=== PATIENT | male | born 1960 | race Caucasian/White ===

== ENCOUNTER 2019-10-12 18:15 | Inpatient (IN) | payer OTHER ==
[~2019-10-12] VITALS: Ht 162.6 cm; Wt 65.5 kg
[2019-10-12] MEDS ORDERED: HYDROCODONE/ACETAMINOPHEN 10/325MG TABLET GT PRN (19:45)
[2019-10-12] MEDS ORDERED: GUAIFENESIN 200MG/10ML SUGAR FREE UDC GT PRN (19:45)
[2019-10-12] MEDS ORDERED: METHOCARBAMOL 500MG TABLET GT PRN ×2 (19:45→20:15)
[2019-10-12] MEDS ORDERED: FLUO40CA8 MT (19:57)
[2019-10-12] MEDS ORDERED: MULT1TAB76 MT (19:57)
[2019-10-12] MEDS ORDERED: CETI-114 MT (19:57)
[2019-10-12 20:00] VITALS: BP 119/76
[2019-10-12] MEDS: ACETAMINOPHEN 650MG/20.3ML UDC GT PRN (20:11)
[2019-10-13 08:00] VITALS: BP 113/76
[2019-10-13 08:04] LABS: HEMATOCRIT. 35.2 % (42.0-52.0); MEAN CORPUSCULAR VOLUME 90.5 fL (80.0-94.0); MEAN PLATELET VOLUME 8.4 fl (7.4-10.4); PLATELET 308 x1000/uL (130-400); RED BLOOD CELL COUNT 3.88 mill/uL (4.7-6.1); RED CELL DISTRIBUTION WIDTH 13.8 % (11.6-14.6)
[2019-10-13 08:13] LABS: CHLORIDE 112 mEq/L (98-107)
[2019-10-13] MEDS: CETIRIZINE 10MG TABLET GT SCH (09:06)
[2019-10-13] MEDS: MULTIVITAMINS,THER W-MINERALS TABLET GT SCH (09:06)
[2019-10-13] MEDS: FLUOXETINE HCL 20MG CAPSULE GT SCH (09:07)
[2019-10-13] MEDS: ACETAMINOPHEN 650MG/20.3ML UDC GT PRN (09:07)
[2019-10-13] MEDS: HEPARIN 5000 UNITS/ML VIAL SUBCUT SCH ×2 (11:15→21:30)
[2019-10-13] MEDS ORDERED: METHOCARBAMOL 500MG TABLET GT PRN (11:30)
[2019-10-13 13:39] LABS: PLATELET ESTIMATE NORMAL
[2019-10-13 20:00] VITALS: BP 109/71
[2019-10-13] MEDS: FAMOTIDINE 20MG TABLET GT SCH (21:30)
[2019-10-14] MEDS: ACETAMINOPHEN 650MG/20.3ML UDC GT PRN ×2 (03:46→14:40)
[2019-10-14 07:28] VITALS: BP 91/61
[2019-10-14] MEDS: FLUOXETINE HCL 20MG CAPSULE GT SCH (09:14)
[2019-10-14] MEDS: MULTIVITAMINS,THER W-MINERALS TABLET GT SCH (09:14)
[2019-10-14] MEDS: CETIRIZINE 10MG TABLET GT SCH (09:14)
[2019-10-14] MEDS: HEPARIN 5000 UNITS/ML VIAL SUBCUT SCH ×2 (09:15→21:15)
[2019-10-14 20:00] VITALS: BP 101/64
[2019-10-14] MEDS: FAMOTIDINE 20MG TABLET GT SCH (21:15)
[2019-10-15 04:43] LABS: HEMOGLOBIN. 13.1 g/dL (14.0-18.0); MEAN CORPUSCULAR HEMOGLOBIN 30.1 pg (28.0-32.0); MEAN CORPUSCULAR VOLUME 89.4 fL (80.0-94.0); PLATELET 307 x1000/uL (130-400); RED BLOOD CELL COUNT 4.36 mill/uL (4.7-6.1); RED CELL DISTRIBUTION WIDTH 13.7 % (11.6-14.6)
[2019-10-15 04:55] LABS: CHLORIDE 109 mEq/L (98-107)
[2019-10-15 05:05] LABS: PHOSPHORUS 3.6 mg/dL (2.5-4.9)
[2019-10-15 05:07] LABS: TOTAL IRON BINDING CAPACITY 226 ug/dL (250-450)
[2019-10-15 05:54] LABS: FOLIC ACID (FOLATE) SERUM 18.6 ng/mL (>5.38)
[2019-10-15 06:25] LABS: PROSTRATE SPECIFIC AG TOTAL 1.7 ng/mL (0.0-4.0)
[2019-10-15 07:09] LABS: PLATELET ESTIMATE NORMAL
[2019-10-15] MEDS: ACETAMINOPHEN 650MG/20.3ML UDC GT PRN ×2 (07:38→21:34)
[2019-10-15 07:53] VITALS: BP 106/60
[2019-10-15] MEDS: CETIRIZINE 10MG TABLET GT SCH (09:24)
[2019-10-15] MEDS: FLUOXETINE HCL 20MG CAPSULE GT SCH (09:24)
[2019-10-15] MEDS: MULTIVITAMINS,THER W-MINERALS TABLET GT SCH (09:24)
[2019-10-15] MEDS: HEPARIN 5000 UNITS/ML VIAL SUBCUT SCH ×2 (09:24→21:35)
[2019-10-15] MEDS ORDERED: AMPICILLIN SOD/SULBACTAM NA 1.5 G in SODIUM CHLORIDE 0.9% 50 ML IV SCH (14:30)
[2019-10-15 20:00] VITALS: BP 108/64
[2019-10-15] MEDS: PIPERACILLIN/TAZOBACTAM 3.375 G in DEXT 5% WATER 100 ML IV SCH ×2 (21:34→22:00)
[2019-10-15] MEDS: LACTULOSE 20G/30ML UDC GT SCH (21:34)
[2019-10-15] MEDS: FAMOTIDINE 20MG TABLET GT SCH (21:34)
[2019-10-16] MEDS: PIPERACILLIN/TAZOBACTAM 3.375 G in DEXT 5% WATER 100 ML IV SCH ×4 (04:05→21:00)
[2019-10-16] MEDS: LACTULOSE 20G/30ML UDC GT SCH (06:00)
[2019-10-16 07:56] VITALS: BP 113/74
[2019-10-16 08:40] LABS: BASOPHILS % 0.2 % (0.0-2.0); EOSINOPHILS % 0.8 % (0.0-5.0); HEMATOCRIT. 38.7 % (42.0-52.0); HEMOGLOBIN. 13.1 g/dL (14.0-18.0); LYMPHOCYTES % 16.1 % (20.0-50.0); MEAN CORPUSCULAR HEMOGLOBIN 30.5 pg (28.0-32.0); MEAN CORPUSCULAR VOLUME 89.9 fL (80.0-94.0); MEAN PLATELET VOLUME 8.4 fl (7.4-10.4); MONOCYTES % 3.4 % (2.0-8.0); NEUTROPHILS % 79.5 % (40.0-76.0); PLATELET 275 x1000/uL (130-400); RED BLOOD CELL COUNT 4.31 mill/uL (4.7-6.1); RED CELL DISTRIBUTION WIDTH 13.4 % (11.6-14.6)
[2019-10-16 08:55] LABS: CHLORIDE 109 mEq/L (98-107)
[2019-10-16] MEDS: MULTIVITAMINS,THER W-MINERALS TABLET GT SCH (10:00)
[2019-10-16] MEDS: CETIRIZINE 10MG TABLET GT SCH (10:00)
[2019-10-16] MEDS: FLUOXETINE HCL 20MG CAPSULE GT SCH (10:00)
[2019-10-16] MEDS: HEPARIN 5000 UNITS/ML VIAL SUBCUT SCH ×2 (10:01→20:40)
[2019-10-16] MEDS: ACETAMINOPHEN 650MG/20.3ML UDC GT PRN ×2 (13:35→19:23)
[2019-10-16] MEDS ORDERED: ONDANSETRON HCL 4MG/2ML INJ IV PRN (14:45)
[2019-10-16 20:00] VITALS: BP 94/63
[2019-10-16] MEDS: FAMOTIDINE 20MG TABLET GT SCH (20:39)
[2019-10-17] MEDS: PIPERACILLIN/TAZOBACTAM 3.375 G in DEXT 5% WATER 100 ML IV SCH ×4 (03:25→21:07)
[2019-10-17 06:18] LABS: CHLORIDE 108 mEq/L (98-107)
[2019-10-17 06:28] LABS: BASOPHILS % 0.2 % (0.0-2.0); EOSINOPHILS % 0.7 % (0.0-5.0); HEMOGLOBIN. 12.5 g/dL (14.0-18.0); LYMPHOCYTES % 17.6 % (20.0-50.0); MEAN CORPUSCULAR HEMOGLOBIN 30.4 pg (28.0-32.0); MEAN CORPUSCULAR VOLUME 89.9 fL (80.0-94.0); MEAN PLATELET VOLUME 8.9 fl (7.4-10.4); MONOCYTES % 4.2 % (2.0-8.0); NEUTROPHILS % 77.3 % (40.0-76.0); PLATELET 240 x1000/uL (130-400); RED BLOOD CELL COUNT 4.12 mill/uL (4.7-6.1); RED CELL DISTRIBUTION WIDTH 13.5 % (11.6-14.6)
[2019-10-17 08:00] VITALS: BP 94/52
[2019-10-17] MEDS: FLUOXETINE HCL 20MG CAPSULE GT SCH (08:15)
[2019-10-17] MEDS: CETIRIZINE 10MG TABLET GT SCH (08:15)
[2019-10-17] MEDS: MULTIVITAMINS,THER W-MINERALS TABLET GT SCH (08:15)
[2019-10-17] MEDS: ACETAMINOPHEN 650MG/20.3ML UDC GT PRN ×2 (08:15→15:18)
[2019-10-17] MEDS: HEPARIN 5000 UNITS/ML VIAL SUBCUT SCH ×2 (08:16→20:49)
[2019-10-17] MEDS: ACETAMINOPHEN 325MG TABLET PO SCH ×3 (08:42→18:21)
[2019-10-17] MEDS ORDERED: GABAPENTIN 100MG CAPSULE PO PRN (12:45)
[2019-10-17 20:00] VITALS: BP 91/61
[2019-10-17] MEDS: FAMOTIDINE 20MG TABLET GT SCH (20:48)
[2019-10-18] MEDS: PIPERACILLIN/TAZOBACTAM 3.375 G in DEXT 5% WATER 100 ML IV SCH ×4 (03:42→21:06)
[2019-10-18 06:12] LABS: BASOPHILS % 0.5 % (0.0-2.0); EOSINOPHILS % 0.7 % (0.0-5.0); HEMATOCRIT. 34.5 % (42.0-52.0); HEMOGLOBIN. 11.8 g/dL (14.0-18.0); LYMPHOCYTES % 16.7 % (20.0-50.0); MEAN CORPUSCULAR HEMOGLOBIN 30.9 pg (28.0-32.0); MEAN PLATELET VOLUME 8.7 fl (7.4-10.4); MONOCYTES % 4.9 % (2.0-8.0); NEUTROPHILS % 77.2 % (40.0-76.0); PLATELET 218 x1000/uL (130-400); RED BLOOD CELL COUNT 3.84 mill/uL (4.7-6.1); RED CELL DISTRIBUTION WIDTH 13.7 % (11.6-14.6)
[2019-10-18 06:17] LABS: CHLORIDE 107 mEq/L (98-107)
[2019-10-18 08:00] VITALS: BP 101/66
[2019-10-18] MEDS: ACETAMINOPHEN 325MG TABLET PO SCH ×3 (08:40→17:44)
[2019-10-18] MEDS: FLUOXETINE HCL 20MG CAPSULE GT SCH (08:40)
[2019-10-18] MEDS: CETIRIZINE 10MG TABLET GT SCH (08:40)
[2019-10-18] MEDS: HEPARIN 5000 UNITS/ML VIAL SUBCUT SCH ×2 (08:40→21:06)
[2019-10-18] MEDS: MULTIVITAMINS,THER W-MINERALS TABLET GT SCH (08:40)
[2019-10-18] MEDS: IBUPROFEN 200MG TABLET PO SCH ×2 (13:27→17:43)
[2019-10-18 20:00] VITALS: BP 87/56
[2019-10-18] MEDS: FAMOTIDINE 20MG TABLET GT SCH (21:05)
[2019-10-19] MEDS: PIPERACILLIN/TAZOBACTAM 3.375 G in DEXT 5% WATER 100 ML IV SCH ×4 (04:35→22:14)
[2019-10-19 08:21] VITALS: BP 95/62
[2019-10-19] MEDS: ACETAMINOPHEN 325MG TABLET PO SCH ×3 (08:23→16:52)
[2019-10-19] MEDS: MULTIVITAMINS,THER W-MINERALS TABLET GT SCH (08:23)
[2019-10-19] MEDS: FLUOXETINE HCL 20MG CAPSULE GT SCH (08:24)
[2019-10-19] MEDS: CETIRIZINE 10MG TABLET GT SCH (08:24)
[2019-10-19] MEDS: HEPARIN 5000 UNITS/ML VIAL SUBCUT SCH ×2 (08:25→21:25)
[2019-10-19] MEDS: IBUPROFEN 200MG TABLET PO SCH ×3 (08:25→16:52)
[2019-10-19 14:07] LABS: 25-HYDROXY VITAMIN D3 30 ng/mL (.)
[2019-10-19] MEDS: ERGOCALCIFEROL 50000UNITS CAPSULE PO SCH (16:52)
[2019-10-19 20:00] VITALS: BP 97/55
[2019-10-19] MEDS: FAMOTIDINE 20MG TABLET GT SCH (21:24)
[2019-10-20] MEDS: PIPERACILLIN/TAZOBACTAM 3.375 G in DEXT 5% WATER 100 ML IV SCH ×4 (04:48→21:22)
[2019-10-20 08:00] VITALS: BP 108/76
[2019-10-20] MEDS: ACETAMINOPHEN 325MG TABLET PO SCH ×3 (08:39→16:30)
[2019-10-20] MEDS: FLUOXETINE HCL 20MG CAPSULE GT SCH (08:39)
[2019-10-20] MEDS: IBUPROFEN 200MG TABLET PO SCH ×3 (08:40→16:29)
[2019-10-20] MEDS: CETIRIZINE 10MG TABLET GT SCH (08:40)
[2019-10-20] MEDS: MULTIVITAMINS,THER W-MINERALS TABLET GT SCH (08:41)
[2019-10-20] MEDS: HEPARIN 5000 UNITS/ML VIAL SUBCUT SCH ×2 (08:41→21:22)
[2019-10-20 15:31] LABS: BASOPHILS % 0.6 % (0.0-2.0); EOSINOPHILS % 0.4 % (0.0-5.0); HEMATOCRIT. 38.4 % (42.0-52.0); HEMOGLOBIN. 13.2 g/dL (14.0-18.0); LYMPHOCYTES % 17.8 % (20.0-50.0); MEAN CORPUSCULAR HEMOGLOBIN 30.7 pg (28.0-32.0); MEAN CORPUSCULAR VOLUME 89.6 fL (80.0-94.0); MEAN PLATELET VOLUME 9.2 fl (7.4-10.4); MONOCYTES % 5.1 % (2.0-8.0); NEUTROPHILS % 76.1 % (40.0-76.0); PLATELET 222 x1000/uL (130-400); RED BLOOD CELL COUNT 4.28 mill/uL (4.7-6.1)
[2019-10-20 15:43] LABS: CHLORIDE 109 mEq/L (98-107)
[2019-10-20 15:51] LABS: PHOSPHORUS 2.9 mg/dL (2.5-4.9)
[2019-10-20 20:00] VITALS: BP 137/70
[2019-10-20] MEDS: FAMOTIDINE 20MG TABLET GT SCH (21:22)
[2019-10-21 07:51] VITALS: BP 97/60
[2019-10-21 08:51] LABS: BASOPHILS % 0.5 % (0.0-2.0); EOSINOPHILS % 0.6 % (0.0-5.0); HEMATOCRIT. 37.5 % (42.0-52.0); HEMOGLOBIN. 12.9 g/dL (14.0-18.0); LYMPHOCYTES % 22.9 % (20.0-50.0); MEAN CORPUSCULAR HEMOGLOBIN 30.7 pg (28.0-32.0); MEAN PLATELET VOLUME 8.7 fl (7.4-10.4); MONOCYTES % 6.4 % (2.0-8.0); NEUTROPHILS % 69.6 % (40.0-76.0); PLATELET 240 x1000/uL (130-400); RED BLOOD CELL COUNT 4.21 mill/uL (4.7-6.1); RED CELL DISTRIBUTION WIDTH 13.9 % (11.6-14.6)
[2019-10-21] MEDS: ACETAMINOPHEN 325MG TABLET PO SCH ×3 (08:52→16:58)
[2019-10-21] MEDS: CETIRIZINE 10MG TABLET GT SCH (08:53)
[2019-10-21] MEDS: FLUOXETINE HCL 20MG CAPSULE GT SCH (08:53)
[2019-10-21] MEDS: MULTIVITAMINS,THER W-MINERALS TABLET GT SCH (08:53)
[2019-10-21] MEDS: HEPARIN 5000 UNITS/ML VIAL SUBCUT SCH ×2 (08:53→21:45)
[2019-10-21] MEDS: IBUPROFEN 200MG TABLET PO SCH ×3 (08:53→16:59)
[2019-10-21 08:57] LABS: CHLORIDE 111 mEq/L (98-107)
[2019-10-21 09:06] LABS: PHOSPHORUS 3.2 mg/dL (2.5-4.9)
[2019-10-21] MEDS ORDERED: LEVO5TAB29 PO (09:23)
[2019-10-21] MEDS: XYZAL 5 MG GT SCH (12:18)
[2019-10-21 20:00] VITALS: BP 103/70
[2019-10-21] MEDS: FAMOTIDINE 20MG TABLET GT SCH (21:45)
[2019-10-22 08:12] VITALS: BP 101/66
[2019-10-22] MEDS: ACETAMINOPHEN 325MG TABLET PO SCH ×3 (09:00→17:00)
[2019-10-22] MEDS: FLUOXETINE HCL 20MG CAPSULE GT SCH (09:06)
[2019-10-22] MEDS: MULTIVITAMINS,THER W-MINERALS TABLET GT SCH (09:06)
[2019-10-22] MEDS: HEPARIN 5000 UNITS/ML VIAL SUBCUT SCH ×2 (09:07→20:52)
[2019-10-22] MEDS: IBUPROFEN 200MG TABLET PO SCH ×3 (09:07→17:00)
[2019-10-22] MEDS: XYZAL 5 MG GT SCH (09:07)
[2019-10-22 20:00] VITALS: BP 99/67
[2019-10-22] MEDS: FAMOTIDINE 20MG TABLET GT SCH (20:51)
[2019-10-23 07:14] LABS: BASOPHILS % 0.7 % (0.0-2.0); EOSINOPHILS % 0.6 % (0.0-5.0); HEMATOCRIT. 37.9 % (42.0-52.0); HEMOGLOBIN. 12.9 g/dL (14.0-18.0); MEAN CORPUSCULAR HEMOGLOBIN 30.8 pg (28.0-32.0); MEAN PLATELET VOLUME 9.6 fl (7.4-10.4); MONOCYTES % 5.7 % (2.0-8.0); PLATELET 264 x1000/uL (130-400); RED BLOOD CELL COUNT 4.21 mill/uL (4.7-6.1); RED CELL DISTRIBUTION WIDTH 14.1 % (11.6-14.6)
[2019-10-23 08:02] LABS: CHLORIDE 109 mEq/L (98-107)
[2019-10-23 08:51] VITALS: BP 98/65
[2019-10-23] MEDS: MULTIVITAMINS,THER W-MINERALS TABLET GT SCH (09:36)
[2019-10-23] MEDS: XYZAL 5 MG GT SCH (09:36)
[2019-10-23] MEDS: IBUPROFEN 200MG TABLET PO SCH ×3 (09:37→17:25)
[2019-10-23] MEDS: ACETAMINOPHEN 325MG TABLET PO SCH ×3 (09:37→17:25)
[2019-10-23] MEDS: FLUOXETINE HCL 20MG CAPSULE GT SCH (09:37)
[2019-10-23] MEDS: HEPARIN 5000 UNITS/ML VIAL SUBCUT SCH ×3 (09:39→21:10)
[2019-10-23 20:00] VITALS: BP 103/72
[2019-10-23] MEDS: FAMOTIDINE 20MG TABLET GT SCH (21:09)
[2019-10-24] VITALS (7 sets, daily range): BP systolic 73–113; BP diastolic 35–73
[2019-10-24 06:50] LABS: CHLORIDE 111 mEq/L (98-107)
[2019-10-24] MEDS: IBUPROFEN 200MG TABLET PO SCH ×4 (08:21→17:00)
[2019-10-24] MEDS: ACETAMINOPHEN 325MG TABLET PO SCH ×4 (08:21→17:00)
[2019-10-24] MEDS: XYZAL 5 MG GT SCH (08:23)
[2019-10-24] MEDS: MULTIVITAMINS,THER W-MINERALS TABLET GT SCH (08:24)
[2019-10-24] MEDS: FLUOXETINE HCL 20MG CAPSULE GT SCH (08:24)
[2019-10-24] MEDS: HEPARIN 5000 UNITS/ML VIAL SUBCUT SCH ×2 (08:25→20:46)
[2019-10-24] MEDS: SODIUM CHLORIDE 0.9% 1,000 ML IV SCH (13:25)
[2019-10-24] MEDS: FAMOTIDINE 20MG TABLET GT SCH (20:46)
[2019-10-25] MEDS: SODIUM CHLORIDE 0.9% 1,000 ML IV SCH ×2 (05:43→23:37)
[2019-10-25 08:00] VITALS: BP 111/74
[2019-10-25] MEDS: MULTIVITAMINS,THER W-MINERALS TABLET GT SCH (08:59)
[2019-10-25] MEDS: HEPARIN 5000 UNITS/ML VIAL SUBCUT SCH ×2 (08:59→21:59)
[2019-10-25] MEDS: FLUOXETINE HCL 20MG CAPSULE GT SCH (08:59)
[2019-10-25] MEDS: ACETAMINOPHEN 325MG TABLET PO SCH ×3 (09:00→16:07)
[2019-10-25] MEDS: XYZAL 5 MG GT SCH (09:00)
[2019-10-25] MEDS: IBUPROFEN 200MG TABLET PO SCH ×3 (09:00→16:07)
[2019-10-25] MEDS ORDERED: GADOBENATE DIMEGLUMINE 529 MG/ML 10ML IV ONE (12:29)
[2019-10-25] MEDS: LACTULOSE 20G/30ML UDC PO SCH ×2 (16:55→22:01)
[2019-10-25 20:00] VITALS: BP 97/58
[2019-10-25] MEDS: FAMOTIDINE 20MG TABLET GT SCH (22:00)
[2019-10-26 08:00] VITALS: BP 99/63
[2019-10-26] MEDS: LACTULOSE 20G/30ML UDC PO SCH (09:00)
[2019-10-26] MEDS: ACETAMINOPHEN 325MG TABLET PO SCH ×3 (09:54→16:54)
[2019-10-26] MEDS: FLUOXETINE HCL 20MG CAPSULE GT SCH (09:54)
[2019-10-26] MEDS: IBUPROFEN 200MG TABLET PO SCH ×3 (09:55→16:53)
[2019-10-26] MEDS: MULTIVITAMINS,THER W-MINERALS TABLET GT SCH (09:55)
[2019-10-26] MEDS: XYZAL 5 MG GT SCH (09:56)
[2019-10-26] MEDS: HEPARIN 5000 UNITS/ML VIAL SUBCUT SCH ×2 (09:57→21:02)
[2019-10-26] MEDS: SODIUM CHLORIDE 0.9% 1,000 ML IV SCH (14:33)
[2019-10-26] MEDS: ERGOCALCIFEROL 50000UNITS CAPSULE PO SCH (16:53)
[2019-10-26] MEDS: MIDODRINE HCL 2.5MG TABLET PO SCH (17:04)
[2019-10-26 20:00] VITALS: BP 120/77
[2019-10-26] MEDS: FAMOTIDINE 20MG TABLET GT SCH (21:02)
[2019-10-27 06:50] LABS: BASOPHILS % 0.5 % (0.0-2.0); EOSINOPHILS % 1.2 % (0.0-5.0); HEMATOCRIT. 34.7 % (42.0-52.0); LYMPHOCYTES % 20.9 % (20.0-50.0); MEAN CORPUSCULAR HEMOGLOBIN 30.6 pg (28.0-32.0); MEAN PLATELET VOLUME 9.3 fl (7.4-10.4); MONOCYTES % 5.7 % (2.0-8.0); NEUTROPHILS % 71.7 % (40.0-76.0); PLATELET 247 x1000/uL (130-400); RED CELL DISTRIBUTION WIDTH 14.2 % (11.6-14.6)
[2019-10-27 06:59] LABS: CHLORIDE 111 mEq/L (98-107)
[2019-10-27 07:06] LABS: PHOSPHORUS 2.7 mg/dL (2.5-4.9)
[2019-10-27 08:00] VITALS: BP 118/71
[2019-10-27] MEDS: ACETAMINOPHEN 325MG TABLET PO SCH ×3 (08:40→16:51)
[2019-10-27] MEDS: IBUPROFEN 200MG TABLET PO SCH ×3 (08:41→16:51)
[2019-10-27] MEDS: FLUOXETINE HCL 20MG CAPSULE GT SCH (08:42)
[2019-10-27] MEDS: MULTIVITAMINS,THER W-MINERALS TABLET GT SCH (08:42)
[2019-10-27] MEDS: MIDODRINE HCL 2.5MG TABLET PO SCH (08:42)
[2019-10-27] MEDS: XYZAL 5 MG GT SCH (08:42)
[2019-10-27 09:54] VITALS: BP_SYST 68; BP_SYST 91; BP_DIAS 37; BP_DIAS 57
[2019-10-27] MEDS: HEPARIN 5000 UNITS/ML VIAL SUBCUT SCH ×2 (11:04→20:26)
[2019-10-27] MEDS: SODIUM CHLORIDE 0.9% 1,000 ML IV SCH ×3 (11:04→23:00)
[2019-10-27] MEDS: MIDODRINE HCL 5MG TABLET PO SCH ×2 (14:03→16:51)
[2019-10-27] MEDS: FLUDROCORTISONE ACETATE 0.1MG TABLET PO SCH (15:09)
[2019-10-27 20:00] VITALS: BP_SYST 120; BP_SYST 122; BP_SYST 79; BP_DIAS 46; BP_DIAS 79; BP_DIAS 83
[2019-10-27] MEDS: FAMOTIDINE 20MG TABLET GT SCH (20:26)
[2019-10-28] MEDS: SODIUM CHLORIDE 0.9% 1,000 ML IV SCH ×3 (00:54→09:30)
[2019-10-28 07:56] LABS: BASOPHILS % 0.4 % (0.0-2.0); EOSINOPHILS % 1.1 % (0.0-5.0); HEMATOCRIT. 33.8 % (42.0-52.0); LYMPHOCYTES % 24.7 % (20.0-50.0); MEAN CORPUSCULAR HEMOGLOBIN 31.5 pg (28.0-32.0); MEAN CORPUSCULAR VOLUME 89.1 fL (80.0-94.0); MEAN PLATELET VOLUME 9.1 fl (7.4-10.4); MONOCYTES % 7.2 % (2.0-8.0); NEUTROPHILS % 66.6 % (40.0-76.0); PLATELET 240 x1000/uL (130-400); RED BLOOD CELL COUNT 3.79 mill/uL (4.7-6.1); RED CELL DISTRIBUTION WIDTH 14.5 % (11.6-14.6)
[2019-10-28 08:28] VITALS: BP 118/86
[2019-10-28 09:13] LABS: CHLORIDE 110 mEq/L (98-107)
[2019-10-28] MEDS: ACETAMINOPHEN 325MG TABLET PO SCH ×3 (09:28→16:12)
[2019-10-28] MEDS: FLUOXETINE HCL 20MG CAPSULE GT SCH (09:28)
[2019-10-28] MEDS: HEPARIN 5000 UNITS/ML VIAL SUBCUT SCH ×2 (09:28→21:28)
[2019-10-28] MEDS: IBUPROFEN 200MG TABLET PO SCH ×3 (09:29→16:13)
[2019-10-28] MEDS: FLUDROCORTISONE ACETATE 0.1MG TABLET PO SCH (09:29)
[2019-10-28] MEDS: MULTIVITAMINS,THER W-MINERALS TABLET GT SCH (09:29)
[2019-10-28] MEDS: MIDODRINE HCL 5MG TABLET PO SCH ×4 (09:29→16:12)
[2019-10-28] MEDS: XYZAL 5 MG GT SCH (09:30)
[2019-10-28 10:00] VITALS: BP_SYST 113; BP_SYST 76; BP_SYST 96; BP_DIAS 46; BP_DIAS 61; BP_DIAS 74
[2019-10-28] MEDS ORDERED: LACTULOSE 20G/30ML UDC PO SCH (12:00)
[2019-10-28 20:00] VITALS: BP 127/80
[2019-10-28] MEDS: FAMOTIDINE 20MG TABLET GT SCH (21:28)
[2019-10-29 08:00] VITALS: BP 100/72
[2019-10-29] MEDS: FLUOXETINE HCL 20MG CAPSULE GT SCH (09:00)
[2019-10-29] MEDS: ACETAMINOPHEN 325MG TABLET PO SCH ×3 (09:01→16:43)
[2019-10-29] MEDS: IBUPROFEN 200MG TABLET PO SCH ×3 (09:02→16:32)
[2019-10-29] MEDS: HEPARIN 5000 UNITS/ML VIAL SUBCUT SCH ×2 (09:03→21:26)
[2019-10-29] MEDS: MIDODRINE HCL 5MG TABLET PO SCH ×3 (09:03→16:32)
[2019-10-29] MEDS: FLUDROCORTISONE ACETATE 0.1MG TABLET PO SCH ×3 (09:03→21:26)
[2019-10-29] MEDS: MULTIVITAMINS,THER W-MINERALS TABLET GT SCH (09:03)
[2019-10-29] MEDS: XYZAL 5 MG GT SCH (09:04)
[2019-10-29 12:46] VITALS: BP_SYST 103; BP_SYST 113; BP_SYST 85; BP_DIAS 34; BP_DIAS 68; BP_DIAS 91
[2019-10-29 14:37] VITALS: BP_SYST 108; BP_SYST 124; BP_SYST 73; BP_DIAS 77; BP_DIAS 80
[2019-10-29] MEDS: PHENAZOPYRIDINE HCL 100MG TABLET PO SCH (16:33)
[2019-10-29] MEDS ORDERED: CEFTRIAXONE 1 G PREMIX 50 ML IV SCH (17:00)
[2019-10-29 20:00] VITALS: BP 151/82
[2019-10-29] MEDS: FAMOTIDINE 20MG TABLET GT SCH (21:26)
[2019-10-30 08:00] VITALS: BP 100/60
[2019-10-30] MEDS: XYZAL 5 MG GT SCH (08:48)
[2019-10-30] MEDS: PHENAZOPYRIDINE HCL 100MG TABLET PO SCH ×3 (08:49→18:12)
[2019-10-30] MEDS: MULTIVITAMINS,THER W-MINERALS TABLET GT SCH (08:49)
[2019-10-30] MEDS: IBUPROFEN 200MG TABLET PO SCH ×3 (08:50→18:10)
[2019-10-30] MEDS: ACETAMINOPHEN 325MG TABLET PO SCH ×3 (08:51→18:12)
[2019-10-30] MEDS: MIDODRINE HCL 5MG TABLET PO SCH ×3 (08:51→18:12)
[2019-10-30] MEDS: FLUDROCORTISONE ACETATE 0.1MG TABLET PO SCH ×2 (08:51→21:11)
[2019-10-30] MEDS: FLUOXETINE HCL 20MG CAPSULE GT SCH (08:51)
[2019-10-30] MEDS: HEPARIN 5000 UNITS/ML VIAL SUBCUT SCH ×2 (08:52→21:11)
[2019-10-30 09:00] VITALS: BP 86/52
[2019-10-30 10:20] LABS: BASOPHILS % 0.5 % (0.0-2.0); HEMATOCRIT. 38.6 % (42.0-52.0); HEMOGLOBIN. 13.4 g/dL (14.0-18.0); LYMPHOCYTES % 15.3 % (20.0-50.0); MEAN CORPUSCULAR VOLUME 89.1 fL (80.0-94.0); MEAN PLATELET VOLUME 9.1 fl (7.4-10.4); MONOCYTES % 7.5 % (2.0-8.0); NEUTROPHILS % 74.7 % (40.0-76.0); PLATELET 277 x1000/uL (130-400); RED BLOOD CELL COUNT 4.34 mill/uL (4.7-6.1); RED CELL DISTRIBUTION WIDTH 14.6 % (11.6-14.6)
[2019-10-30 10:42] LABS: CHLORIDE 107 mEq/L (98-107)
[2019-10-30] MEDS: CEFEPIME 1,000 MG in DEXTROSE 5% WATER 50 ML IV SCH (18:14)
[2019-10-30 20:00] VITALS: BP 115/82
[2019-10-30] MEDS: FAMOTIDINE 20MG TABLET GT SCH (21:11)
[2019-10-31 01:21] LABS: CLARITY URINE CLEAR (CLEAR); COLOR URINE ORANGE (YELLOW); KETONES URINE NEGATIVE (NEGATIVE); LEUKOCYTE ESTERASE URINE 1+ (NEGATIVE); NITRITE URINE POSITIVE (NEGATIVE); OCCULT BLOOD URINE NEGATIVE (NEGATIVE); PROTEIN URINE TRACE (NEGATIVE); SPECIFIC GRAVITY URINE 1.008 (1.005-1.030)
[2019-10-31] MEDS: CEFEPIME 1,000 MG in DEXTROSE 5% WATER 50 ML IV SCH ×2 (05:46→17:32)
[2019-10-31 08:00] VITALS: BP 102/67
[2019-10-31] MEDS: IBUPROFEN 200MG TABLET PO SCH ×2 (09:58→13:56)
[2019-10-31] MEDS: MIDODRINE HCL 5MG TABLET PO SCH ×3 (09:59→17:12)
[2019-10-31] MEDS: MULTIVITAMINS,THER W-MINERALS TABLET GT SCH (09:59)
[2019-10-31] MEDS: FLUOXETINE HCL 20MG CAPSULE GT SCH (09:59)
[2019-10-31] MEDS: HEPARIN 5000 UNITS/ML VIAL SUBCUT SCH ×2 (10:00→21:45)
[2019-10-31] MEDS: FLUDROCORTISONE ACETATE 0.1MG TABLET PO SCH ×3 (10:00→17:12)
[2019-10-31] MEDS: PHENAZOPYRIDINE HCL 100MG TABLET PO SCH ×3 (10:00→17:12)
[2019-10-31] MEDS: ACETAMINOPHEN 325MG TABLET PO SCH ×2 (10:00→13:50)
[2019-10-31] MEDS: XYZAL 5 MG GT SCH (10:02)
[2019-10-31 12:00] VITALS: BP 88/63
[2019-10-31 13:26] LABS: BASOPHILS % 0.4 % (0.0-2.0); EOSINOPHILS % 1.7 % (0.0-5.0); HEMATOCRIT. 39.3 % (42.0-52.0); HEMOGLOBIN. 13.4 g/dL (14.0-18.0); LYMPHOCYTES % 14.1 % (20.0-50.0); MEAN CORPUSCULAR HEMOGLOBIN 30.7 pg (28.0-32.0); MEAN CORPUSCULAR VOLUME 89.9 fL (80.0-94.0); MONOCYTES % 7.9 % (2.0-8.0); NEUTROPHILS % 75.9 % (40.0-76.0); PLATELET 253 x1000/uL (130-400); RED BLOOD CELL COUNT 4.37 mill/uL (4.7-6.1); RED CELL DISTRIBUTION WIDTH 14.6 % (11.6-14.6)
[2019-10-31] MEDS: SODIUM CHLORIDE 0.9% 1,000 ML IV SCH (17:05)
[2019-10-31] MEDS: ACETAMINOPHEN 650MG/20.3ML UDC GT PRN (18:09)
[2019-10-31 20:00] VITALS: BP 113/78
[2019-10-31] MEDS: FAMOTIDINE 20MG TABLET GT SCH (21:44)
[2019-11-01] MEDS: CEFEPIME 1,000 MG in DEXTROSE 5% WATER 50 ML IV SCH ×2 (05:55→17:47)
[2019-11-01] MEDS: SODIUM CHLORIDE 0.9% 1,000 ML IV SCH ×2 (06:27→17:47)
[2019-11-01 06:48] LABS: BASOPHILS % 0.6 % (0.0-2.0); EOSINOPHILS % 2.5 % (0.0-5.0); HEMATOCRIT. 34.4 % (42.0-52.0); HEMOGLOBIN. 12.1 g/dL (14.0-18.0); LYMPHOCYTES % 24.7 % (20.0-50.0); MEAN CORPUSCULAR HEMOGLOBIN 31.3 pg (28.0-32.0); MEAN CORPUSCULAR VOLUME 89.4 fL (80.0-94.0); MEAN PLATELET VOLUME 9.4 fl (7.4-10.4); NEUTROPHILS % 64.2 % (40.0-76.0); PLATELET 223 x1000/uL (130-400); RED BLOOD CELL COUNT 3.85 mill/uL (4.7-6.1); RED CELL DISTRIBUTION WIDTH 14.5 % (11.6-14.6)
[2019-11-01 07:03] LABS: CHLORIDE 110 mEq/L (98-107)
[2019-11-01] MEDS: MULTIVITAMINS,THER W-MINERALS TABLET GT SCH (08:48)
[2019-11-01] MEDS: FLUOXETINE HCL 20MG CAPSULE GT SCH (08:48)
[2019-11-01] MEDS: FLUDROCORTISONE ACETATE 0.1MG TABLET PO SCH ×2 (08:49→17:47)
[2019-11-01] MEDS: MIDODRINE HCL 5MG TABLET PO SCH ×3 (08:49→17:47)
[2019-11-01] MEDS: HEPARIN 5000 UNITS/ML VIAL SUBCUT SCH ×2 (08:50→20:28)
[2019-11-01] MEDS: XYZAL 5 MG GT SCH (08:50)
[2019-11-01 09:30] VITALS: BP 99/67
[2019-11-01 12:00] VITALS: BP_SYST 103; BP_SYST 78; BP_SYST 98; BP_DIAS 46; BP_DIAS 67
[2019-11-01] MEDS ORDERED: METH500T6 GT (14:25)
[2019-11-01] MEDS ORDERED: FLOR PO ×2 (14:25)
[2019-11-01] MEDS ORDERED: AMOX250S70 MT (14:25)
[2019-11-01] MEDS ORDERED: MIDO5TAB4 PO (14:25)
[2019-11-01 20:00] VITALS: BP 103/65
[2019-11-01] MEDS: FAMOTIDINE 20MG TABLET GT SCH (20:28)
[2019-11-02] MEDS: CEFEPIME 1,000 MG in DEXTROSE 5% WATER 50 ML IV SCH ×2 (05:23→17:40)
[2019-11-02 07:01] LABS: CHLORIDE 110 mEq/L (98-107)
[2019-11-02 07:03] LABS: BASOPHILS % 0.5 % (0.0-2.0); HEMATOCRIT. 32.9 % (42.0-52.0); HEMOGLOBIN. 11.4 g/dL (14.0-18.0); LYMPHOCYTES % 24.6 % (20.0-50.0); MEAN CORPUSCULAR VOLUME 89.6 fL (80.0-94.0); MEAN PLATELET VOLUME 9.1 fl (7.4-10.4); MONOCYTES % 8.6 % (2.0-8.0); NEUTROPHILS % 64.3 % (40.0-76.0); PLATELET 213 x1000/uL (130-400); RED BLOOD CELL COUNT 3.67 mill/uL (4.7-6.1); RED CELL DISTRIBUTION WIDTH 14.6 % (11.6-14.6)
[2019-11-02] MEDS: HEPARIN 5000 UNITS/ML VIAL SUBCUT SCH ×2 (08:14→21:20)
[2019-11-02] MEDS: FLUOXETINE HCL 20MG CAPSULE GT SCH (08:14)
[2019-11-02] MEDS: FLUDROCORTISONE ACETATE 0.1MG TABLET PO SCH ×2 (08:15→17:39)
[2019-11-02] MEDS: MULTIVITAMINS,THER W-MINERALS TABLET GT SCH (08:16)
[2019-11-02] MEDS: XYZAL 5 MG GT SCH (08:16)
[2019-11-02] MEDS: MIDODRINE HCL 5MG TABLET PO SCH ×3 (08:17→17:40)
[2019-11-02] MEDS: SODIUM CHLORIDE 0.9% 1,000 ML IV SCH (08:17)
[2019-11-02 08:23] VITALS: BP 107/66
[2019-11-02 13:16] VITALS: BP_SYST 108; BP_SYST 117; BP_SYST 123; BP_DIAS 78; BP_DIAS 81
[2019-11-02] MEDS: ERGOCALCIFEROL 50000UNITS CAPSULE PO SCH (17:40)
[2019-11-02 20:00] VITALS: BP 136/89
[2019-11-02] MEDS: FAMOTIDINE 20MG TABLET GT SCH (21:21)
[2019-11-03] MEDS: CEFEPIME 1,000 MG in DEXTROSE 5% WATER 50 ML IV SCH ×2 (06:29→17:31)
[2019-11-03 07:01] LABS: BASOPHILS % 0.3 % (0.0-2.0); HEMATOCRIT. 37.3 % (42.0-52.0); HEMOGLOBIN. 12.8 g/dL (14.0-18.0); LYMPHOCYTES % 25.2 % (20.0-50.0); MEAN CORPUSCULAR HEMOGLOBIN 30.9 pg (28.0-32.0); MEAN CORPUSCULAR VOLUME 89.6 fL (80.0-94.0); MEAN PLATELET VOLUME 9.1 fl (7.4-10.4); MONOCYTES % 9.2 % (2.0-8.0); NEUTROPHILS % 63.3 % (40.0-76.0); PLATELET 224 x1000/uL (130-400); RED BLOOD CELL COUNT 4.16 mill/uL (4.7-6.1); RED CELL DISTRIBUTION WIDTH 14.1 % (11.6-14.6)
[2019-11-03 07:13] LABS: CHLORIDE 109 mEq/L (98-107)
[2019-11-03 08:14] VITALS: BP 115/78
[2019-11-03] MEDS: FLUOXETINE HCL 20MG CAPSULE GT SCH (09:02)
[2019-11-03] MEDS: MULTIVITAMINS,THER W-MINERALS TABLET GT SCH (09:03)
[2019-11-03] MEDS: MIDODRINE HCL 5MG TABLET PO SCH ×3 (09:03→17:31)
[2019-11-03] MEDS: FLUDROCORTISONE ACETATE 0.1MG TABLET PO SCH ×2 (09:03→17:31)
[2019-11-03] MEDS: HEPARIN 5000 UNITS/ML VIAL SUBCUT SCH ×2 (09:03→22:10)
[2019-11-03] MEDS: XYZAL 5 MG GT SCH (09:05)
[2019-11-03] MEDS: SODIUM CHLORIDE 0.9% 1,000 ML IV SCH (10:35)
[2019-11-03] MEDS: PHENAZOPYRIDINE HCL 100MG TABLET PO SCH ×2 (12:31→17:31)
[2019-11-03 17:50] VITALS: BP_SYST 118; BP_SYST 139; BP_SYST 72; BP_DIAS 41; BP_DIAS 85; BP_DIAS 89
[2019-11-03 20:00] VITALS: BP 131/81
[2019-11-03] MEDS: FAMOTIDINE 20MG TABLET GT SCH (22:09)
[2019-11-04] MEDS: CEFEPIME 1,000 MG in DEXTROSE 5% WATER 50 ML IV SCH (06:07)
[2019-11-04 08:13] VITALS: BP 117/77
[2019-11-04] MEDS: HEPARIN 5000 UNITS/ML VIAL SUBCUT SCH (09:04)
[2019-11-04] MEDS: XYZAL 5 MG GT SCH (09:04)
[2019-11-04] MEDS: FLUDROCORTISONE ACETATE 0.1MG TABLET PO SCH (09:05)
[2019-11-04] MEDS: PHENAZOPYRIDINE HCL 100MG TABLET PO SCH ×2 (09:05→13:00)
[2019-11-04] MEDS: MULTIVITAMINS,THER W-MINERALS TABLET GT SCH (09:05)
[2019-11-04] MEDS: MIDODRINE HCL 5MG TABLET PO SCH ×2 (09:05→13:02)
[2019-11-04] MEDS: FLUOXETINE HCL 20MG CAPSULE GT SCH (09:05)
[2019-11-04] MEDS: ACETAMINOPHEN 650MG/20.3ML UDC GT PRN (13:00)
[2019-11-04] MEDS: SODIUM CHLORIDE 0.9% 1,000 ML IV SCH (13:03)
[2019-11-04 15:04] VITALS: BP 115/65
== END 2019-11-04 16:30 | disposition home health service (06) | DRG 52 ==
PROVIDERS: ADMIT Physical Medicine & Rehabilitation Spinal Cord Injury Medicine; ATTEND Family Medicine Adult Medicine
DX: G92 Toxic encephalopathy (principal); J69.0 Pneumonitis due to inhalation of food and vomit; A41.9 Sepsis, unspecified organism; E43 Unspecified severe protein-calorie malnutrition; G91.9 Hydrocephalus, unspecified; N17.9 Acute kidney failure, unspecified; H49.22 Sixth [abducent] nerve palsy, left eye; C71.9 Malignant neoplasm of brain, unspecified; E87.8 Other disorders of electrolyte and fluid balance, not elsewhere classified; R13.10 Dysphagia, unspecified; G82.50 Quadriplegia, unspecified; D64.9 Anemia, unspecified; F32.9 Major depressive disorder, single episode, unspecified; G52.9 Cranial nerve disorder, unspecified; H53.2 Diplopia; J30.9 Allergic rhinitis, unspecified; K21.9 Gastro-esophageal reflux disease without esophagitis; N39.0 Urinary tract infection, site not specified; R47.01 Aphasia; R47.02 Dysphasia; Z85.841 Personal history of malignant neoplasm of brain; Z93.1 Gastrostomy status; G58.9 Mononeuropathy, unspecified; G52.3 Disorders of hypoglossal nerve; D63.8 Anemia in other chronic diseases classified elsewhere; E55.9 Vitamin D deficiency, unspecified; F41.8 Other specified anxiety disorders; G31.84 Mild cognitive impairment of uncertain or unknown etiology; I95.1 Orthostatic hypotension; J44.9 Chronic obstructive pulmonary disease, unspecified; I11.9 Hypertensive heart disease without heart failure; R73.9 Hyperglycemia, unspecified; Z79.899 Other long term (current) drug therapy; Z87.891 Personal history of nicotine dependence; Z68.24 Body mass index [BMI] 24.0-24.9, adult
CPT/HCPCS: 36415; 70553; 71045; 80048; 80053; 81003; 82140; 82306; 82607; 82728; 82746; 82962; 83036; 83540; 83550; 83735; 84100; 84134; 84153; 84443; 84484; 85025; 87015; 87045; 87427; 87449; 92523; 92610; 93005; 93306; 93970; 97110; 97112; 97116; 97163; 97166; 97530; 97535; A9577; J0295; J0692; J0696; J1644; J2405; J2543; J7030; J7060; G0103

== ENCOUNTER 2019-11-28 17:52 | Inpatient (IN) | payer OTHER ==
[~2019-11-28] VITALS: Ht 162.6 cm; Wt 66.5 kg
[2019-11-28 17:30] VITALS: BP 118/85
[~2019-11-28 17:52] MED LIST: AMOX250S70 MT; CETI-114 MT; FLOR PO; FLUO40CA8 MT; LEVO5TAB29 PO; METH500T6 GT; MIDO5TAB4 PO; MULT1TAB76 MT
[2019-11-28 20:00] VITALS: BP 116/81
[2019-11-28] MEDS ORDERED: NON FORMULARY PATIENT HOME MED XX SCH (20:30)
[2019-11-28] MEDS ORDERED: NA PHOS,M-B/NA PHOS,DI-BA ENEMA 118ML PR PRN (20:30)
[2019-11-28] MEDS ORDERED: TRAMADOL 50MG TABLET GT PRN (20:30)
[2019-11-28] MEDS ORDERED: DIPHENHYDRAMINE 12.5MG/5ML UDC GT PRN (20:30)
[2019-11-28] MEDS ORDERED: BISACODYL 10MG SUPP PR PRN (20:30)
[2019-11-28] MEDS ORDERED: ACETAMINOPHEN 650MG/20.3ML UDC GT PRN (20:30)
[2019-11-28] MEDS ORDERED: GUAIFENESIN 200MG/10ML SUGAR FREE UDC GT PRN (20:30)
[2019-11-28] MEDS ORDERED: ONDANSETRON HCL 4MG/2ML INJ IV PRN (20:30)
[2019-11-28] MEDS ORDERED: MAGNESIUM HYDROXIDE 400MG/5ML 30ML UDC GT PRN (20:30)
[2019-11-28] MEDS: DOCUSATE SODIUM SUGAR FREE 100MG/10ML UDC GT SCH (22:09)
[2019-11-28] MEDS: LEVOCETIRIZINE 5 MG GT SCH (23:41)
[2019-11-29 07:33] VITALS: BP 112/76
[2019-11-29 07:34] LABS: BASOPHILS % 0.5 % (0.0-2.0); EOSINOPHILS % 2.2 % (0.0-5.0); HEMATOCRIT. 36.7 % (42.0-52.0); HEMOGLOBIN. 12.6 g/dL (14.0-18.0); LYMPHOCYTES % 24.9 % (20.0-50.0); MEAN CORPUSCULAR VOLUME 87.7 fL (80.0-94.0); MEAN PLATELET VOLUME 8.8 fl (7.4-10.4); MONOCYTES % 7.6 % (2.0-8.0); NEUTROPHILS % 64.8 % (40.0-76.0); PLATELET 385 x1000/uL (130-400); RED BLOOD CELL COUNT 4.19 mill/uL (4.7-6.1); RED CELL DISTRIBUTION WIDTH 13.7 % (11.6-14.6)
[2019-11-29 07:41] LABS: CHLORIDE 110 mEq/L (98-107)
[2019-11-29] MEDS: DOCUSATE SODIUM SUGAR FREE 100MG/10ML UDC GT SCH ×2 (09:33→20:50)
[2019-11-29] MEDS: FLUOXETINE HCL 20MG CAPSULE GT SCH (09:34)
[2019-11-29] MEDS: POLYETHYLENE GLYCOL 3350 (17GM) 1 DOSE PACK GT SCH (09:34)
[2019-11-29] MEDS: ACETAMINOPHEN 650MG/20.3ML UDC GT PRN (09:34)
[2019-11-29] MEDS: MIDODRINE HCL 5MG TABLET GT SCH ×3 (09:34→17:18)
[2019-11-29] MEDS ORDERED: SENNOSIDES/DOCUSATE SOD 8.6/50MG TABLET PO PRN (12:30)
[2019-11-29] MEDS ORDERED: MAGNESIUM HYDROXIDE 400MG/5ML 30ML UDC PO PRN (12:30)
[2019-11-29] MEDS ORDERED: LACTULOSE 20G/30ML UDC PO SCH (13:00)
[2019-11-29] MEDS ORDERED: MAGNESIUM CITRATE 300ML SOLUTION PO SCH (14:00)
[2019-11-29 20:00] VITALS: BP 118/118
[2019-11-29] MEDS: LEVOCETIRIZINE 5 MG GT SCH (20:50)
[2019-11-30 07:23] LABS: BASOPHILS % 0.5 % (0.0-2.0); HEMATOCRIT. 35.8 % (42.0-52.0); HEMOGLOBIN. 12.3 g/dL (14.0-18.0); LYMPHOCYTES % 21.8 % (20.0-50.0); MEAN CORPUSCULAR HEMOGLOBIN 29.8 pg (28.0-32.0); MEAN CORPUSCULAR VOLUME 87.3 fL (80.0-94.0); MEAN PLATELET VOLUME 8.9 fl (7.4-10.4); MONOCYTES % 6.6 % (2.0-8.0); NEUTROPHILS % 68.1 % (40.0-76.0); PLATELET 369 x1000/uL (130-400); RED BLOOD CELL COUNT 4.11 mill/uL (4.7-6.1); RED CELL DISTRIBUTION WIDTH 13.4 % (11.6-14.6)
[2019-11-30 07:34] LABS: CHLORIDE 109 mEq/L (98-107)
[2019-11-30 07:46] LABS: FERRITIN 90 ng/mL (22-322)
[2019-11-30 07:48] LABS: PHOSPHORUS 3.6 mg/dL (2.5-4.9); TOTAL IRON BINDING CAPACITY 273 ug/dL (250-450)
[2019-11-30 07:59] LABS: VITAMIN B12 SERUM 1547 pg/mL (211-911)
[2019-11-30] MEDS ORDERED: FAMOTIDINE 20MG TABLET GT PRN (08:00)
[2019-11-30 08:21] VITALS: BP 99/69
[2019-11-30 08:54] LABS: FOLIC ACID (FOLATE) SERUM > 20.00 ng/mL (>5.38)
[2019-11-30] MEDS: DOCUSATE SODIUM SUGAR FREE 100MG/10ML UDC GT SCH ×3 (09:00→20:53)
[2019-11-30] MEDS: POLYETHYLENE GLYCOL 3350 (17GM) 1 DOSE PACK GT SCH ×2 (09:00→09:13)
[2019-11-30] MEDS: FLUOXETINE HCL 20MG CAPSULE GT SCH (09:13)
[2019-11-30] MEDS: HEPARIN 5000 UNITS/ML VIAL SUBCUT SCH ×2 (09:14→20:53)
[2019-11-30] MEDS: MIDODRINE HCL 5MG TABLET GT SCH ×3 (09:17→17:33)
[2019-11-30] MEDS: ACETAMINOPHEN 650MG/20.3ML UDC GT PRN (12:08)
[2019-11-30] MEDS: FERROUS SULFATE 325MG TABLET PO SCH ×2 (13:16→17:33)
[2019-11-30] MEDS: MAGNESIUM HYDROXIDE 400MG/5ML 30ML UDC PO SCH (13:30)
[2019-11-30 20:00] VITALS: BP 106/73
[2019-11-30] MEDS: LEVOCETIRIZINE 5 MG GT SCH (20:53)
[2019-11-30] MEDS: SENNOSIDES/DOCUSATE SOD 8.6/50MG TABLET PO SCH (21:03)
[2019-12-01 06:23] LABS: BASOPHILS % 0.6 % (0.0-2.0); EOSINOPHILS % 2.8 % (0.0-5.0); HEMATOCRIT. 37.5 % (42.0-52.0); HEMOGLOBIN. 12.9 g/dL (14.0-18.0); LYMPHOCYTES % 25.4 % (20.0-50.0); MEAN CORPUSCULAR HEMOGLOBIN 30.1 pg (28.0-32.0); MEAN CORPUSCULAR VOLUME 87.4 fL (80.0-94.0); MONOCYTES % 6.4 % (2.0-8.0); NEUTROPHILS % 64.8 % (40.0-76.0); PLATELET 404 x1000/uL (130-400); RED BLOOD CELL COUNT 4.29 mill/uL (4.7-6.1); RED CELL DISTRIBUTION WIDTH 13.6 % (11.6-14.6)
[2019-12-01 06:28] LABS: CHLORIDE 108 mEq/L (98-107)
[2019-12-01 06:46] LABS: T4 FREE 1.32 ng/dL (0.76-1.46)
[2019-12-01 08:02] VITALS: BP 102/68
[2019-12-01] MEDS: FERROUS SULFATE 325MG TABLET PO SCH ×3 (08:41→17:27)
[2019-12-01] MEDS: MIDODRINE HCL 5MG TABLET GT SCH ×3 (08:41→17:27)
[2019-12-01] MEDS: FLUOXETINE HCL 20MG CAPSULE GT SCH (08:41)
[2019-12-01] MEDS: ASCORBIC ACID 500 MG TABLET PO SCH (08:41)
[2019-12-01] MEDS: HEPARIN 5000 UNITS/ML VIAL SUBCUT SCH ×2 (08:41→20:37)
[2019-12-01] MEDS: POLYETHYLENE GLYCOL 3350 (17GM) 1 DOSE PACK GT SCH (08:42)
[2019-12-01] MEDS: DOCUSATE SODIUM SUGAR FREE 100MG/10ML UDC GT SCH ×2 (08:42→20:37)
[2019-12-01] MEDS: MAGNESIUM HYDROXIDE 400MG/5ML 30ML UDC PO SCH ×2 (08:42→17:26)
[2019-12-01] MEDS ORDERED: LACTULOSE 20G/30ML UDC GT SCH (12:16)
[2019-12-01] MEDS ORDERED: MAGNESIUM CITRATE 300ML SOLUTION PO NR (15:30)
[2019-12-01 20:00] VITALS: BP 96/55
[2019-12-01] MEDS: LEVOCETIRIZINE 5 MG GT SCH (20:37)
[2019-12-01] MEDS: SENNOSIDES/DOCUSATE SOD 8.6/50MG TABLET PO SCH (20:37)
[2019-12-02 08:10] VITALS: BP 91/59
[2019-12-02] MEDS: FLUOXETINE HCL 20MG CAPSULE GT SCH (08:10)
[2019-12-02] MEDS: POLYETHYLENE GLYCOL 3350 (17GM) 1 DOSE PACK GT SCH (08:10)
[2019-12-02] MEDS: FERROUS SULFATE 325MG TABLET PO SCH ×3 (08:10→17:02)
[2019-12-02] MEDS: ASCORBIC ACID 500 MG TABLET PO SCH (08:10)
[2019-12-02] MEDS: HEPARIN 5000 UNITS/ML VIAL SUBCUT SCH ×2 (08:11→21:21)
[2019-12-02] MEDS: DOCUSATE SODIUM SUGAR FREE 100MG/10ML UDC GT SCH ×2 (08:11→21:00)
[2019-12-02] MEDS: MAGNESIUM HYDROXIDE 400MG/5ML 30ML UDC PO SCH ×2 (08:11→17:02)
[2019-12-02] MEDS: MIDODRINE HCL 5MG TABLET GT SCH ×3 (08:11→21:21)
[2019-12-02 08:48] VITALS: BP_SYST 115; BP_SYST 59; BP_SYST 99; BP_DIAS 39; BP_DIAS 46; BP_DIAS 83
[2019-12-02] MEDS: FLUDROCORTISONE ACETATE 0.1MG TABLET PO SCH ×2 (10:48→17:02)
[2019-12-02] MEDS: ACETAMINOPHEN 650MG/20.3ML UDC GT PRN (11:20)
[2019-12-02 18:30] VITALS: BP_SYST 111; BP_SYST 65; BP_SYST 76; BP_DIAS 43; BP_DIAS 47; BP_DIAS 75
[2019-12-02 20:00] VITALS: BP 95/63
[2019-12-02] MEDS: SENNOSIDES/DOCUSATE SOD 8.6/50MG TABLET PO SCH (21:20)
[2019-12-02] MEDS: LEVOCETIRIZINE 5 MG GT SCH (21:21)
[2019-12-02] MEDS: TRAZODONE HCL 50MG TABLET PO PRN (23:11)
[2019-12-03] MEDS: MIDODRINE HCL 5MG TABLET GT SCH ×3 (06:14→21:56)
[2019-12-03 06:46] LABS: BASOPHILS % 0.5 % (0.0-2.0); EOSINOPHILS % 1.8 % (0.0-5.0); HEMATOCRIT. 36.1 % (42.0-52.0); HEMOGLOBIN. 12.4 g/dL (14.0-18.0); LYMPHOCYTES % 25.6 % (20.0-50.0); MEAN CORPUSCULAR HEMOGLOBIN 30.3 pg (28.0-32.0); MEAN CORPUSCULAR VOLUME 87.9 fL (80.0-94.0); MEAN PLATELET VOLUME 9.4 fl (7.4-10.4); MONOCYTES % 5.6 % (2.0-8.0); NEUTROPHILS % 66.5 % (40.0-76.0); PLATELET 346 x1000/uL (130-400); RED CELL DISTRIBUTION WIDTH 13.7 % (11.6-14.6)
[2019-12-03 07:50] LABS: CHLORIDE 105 mEq/L (98-107)
[2019-12-03 08:00] VITALS: BP 105/73
[2019-12-03 08:19] VITALS: BP_SYST 105; BP_SYST 125; BP_DIAS 69; BP_DIAS 73
[2019-12-03 08:45] VITALS: BP_SYST 56; BP_SYST 80; BP_SYST 98; BP_DIAS 34; BP_DIAS 43; BP_DIAS 68
[2019-12-03] MEDS: DOCUSATE SODIUM SUGAR FREE 100MG/10ML UDC GT SCH ×3 (09:00→21:54)
[2019-12-03] MEDS: POLYETHYLENE GLYCOL 3350 (17GM) 1 DOSE PACK GT SCH ×2 (09:00→09:25)
[2019-12-03 09:09] LABS: FOLICLE STIMULATING HORMONE 7.3 mIU/mL (1.5-12.4); LUTEINIZING HORMONE 8.6 mIU/mL (1.7-8.6); PROLACTIN 15.7 ng/mL (4.0-15.2)
[2019-12-03] MEDS: FLUOXETINE HCL 20MG CAPSULE GT SCH (09:25)
[2019-12-03] MEDS: MAGNESIUM HYDROXIDE 400MG/5ML 30ML UDC PO SCH ×2 (09:25→17:28)
[2019-12-03] MEDS: ASCORBIC ACID 500 MG TABLET PO SCH (09:25)
[2019-12-03] MEDS: MULTIVITAMINS,THER W-MINERALS TABLET PO SCH (09:26)
[2019-12-03] MEDS: FERROUS SULFATE 325MG TABLET PO SCH ×3 (09:26→17:28)
[2019-12-03] MEDS: HEPARIN 5000 UNITS/ML VIAL SUBCUT SCH ×2 (09:26→21:55)
[2019-12-03] MEDS: FLUDROCORTISONE ACETATE 0.1MG TABLET PO SCH ×2 (09:26→17:28)
[2019-12-03] MEDS ORDERED: SODIUM CHLORIDE 0.9% 500 ML IV ONE (10:45)
[2019-12-03] MEDS ORDERED: TRAMADOL 50MG TABLET GT PRN (13:15)
[2019-12-03] MEDS ORDERED: HYDROCODONE/ACETAMINOPHEN 5/325MG TABLET PO PRN (16:15)
[2019-12-03 20:00] VITALS: BP 98/63
[2019-12-03] MEDS: LEVOCETIRIZINE 5 MG GT SCH (21:54)
[2019-12-03] MEDS: SENNOSIDES/DOCUSATE SOD 8.6/50MG TABLET PO SCH (21:55)
[2019-12-03] MEDS: TRAZODONE HCL 50MG TABLET PO PRN (23:38)
[2019-12-04] MEDS: MIDODRINE HCL 5MG TABLET GT SCH ×3 (05:50→21:18)
[2019-12-04 06:21] LABS: BASOPHILS % 0.3 % (0.0-2.0); EOSINOPHILS % 2.1 % (0.0-5.0); HEMATOCRIT. 34.6 % (42.0-52.0); MEAN CORPUSCULAR HEMOGLOBIN 30.1 pg (28.0-32.0); MEAN CORPUSCULAR VOLUME 87.1 fL (80.0-94.0); MEAN PLATELET VOLUME 9.2 fl (7.4-10.4); MONOCYTES % 6.1 % (2.0-8.0); NEUTROPHILS % 62.5 % (40.0-76.0); PLATELET 322 x1000/uL (130-400); RED BLOOD CELL COUNT 3.97 mill/uL (4.7-6.1); RED CELL DISTRIBUTION WIDTH 13.7 % (11.6-14.6)
[2019-12-04 06:30] LABS: CHLORIDE 108 mEq/L (98-107)
[2019-12-04 07:44] VITALS: BP 112/74
[2019-12-04] MEDS: ASCORBIC ACID 500 MG TABLET PO SCH (09:15)
[2019-12-04] MEDS: MULTIVITAMINS,THER W-MINERALS TABLET PO SCH (09:15)
[2019-12-04] MEDS: FERROUS SULFATE 325MG TABLET PO SCH ×3 (09:15→16:16)
[2019-12-04] MEDS: FLUOXETINE HCL 20MG CAPSULE GT SCH (09:15)
[2019-12-04] MEDS: MAGNESIUM HYDROXIDE 400MG/5ML 30ML UDC PO SCH ×2 (09:16→16:16)
[2019-12-04] MEDS: DOCUSATE SODIUM SUGAR FREE 100MG/10ML UDC GT SCH ×2 (09:16→21:18)
[2019-12-04] MEDS: HEPARIN 5000 UNITS/ML VIAL SUBCUT SCH ×2 (09:16→21:19)
[2019-12-04] MEDS: POLYETHYLENE GLYCOL 3350 (17GM) 1 DOSE PACK GT SCH (09:16)
[2019-12-04] MEDS: FLUDROCORTISONE ACETATE 0.1MG TABLET PO SCH ×2 (09:16→16:16)
[2019-12-04 13:06] LABS: TESTOSTERONE FREE 8.5 pg/mL (6.6-18.1)
[2019-12-04 13:22] VITALS: BP 96/56
[2019-12-04 20:00] VITALS: BP 118/75
[2019-12-04] MEDS: LEVOCETIRIZINE 5 MG GT SCH (21:18)
[2019-12-04] MEDS: SENNOSIDES/DOCUSATE SOD 8.6/50MG TABLET PO SCH (21:19)
[2019-12-04] MEDS: ACETAMINOPHEN 650MG/20.3ML UDC GT PRN (22:33)
[2019-12-04] MEDS: TRAZODONE HCL 50MG TABLET PO PRN (22:33)
[2019-12-05] MEDS: MIDODRINE HCL 5MG TABLET GT SCH ×3 (06:05→21:25)
[2019-12-05 07:12] LABS: 25-HYDROXY VITAMIN D3 31 ng/mL (.)
[2019-12-05 08:00] VITALS: BP 116/72
[2019-12-05] MEDS: POLYETHYLENE GLYCOL 3350 (17GM) 1 DOSE PACK GT SCH (09:00)
[2019-12-05] MEDS: MAGNESIUM HYDROXIDE 400MG/5ML 30ML UDC PO SCH ×2 (09:00→16:30)
[2019-12-05] MEDS: DOCUSATE SODIUM SUGAR FREE 100MG/10ML UDC GT SCH ×2 (09:00→21:23)
[2019-12-05] MEDS: FLUDROCORTISONE ACETATE 0.1MG TABLET PO SCH ×2 (09:43→16:30)
[2019-12-05] MEDS: MULTIVITAMINS,THER W-MINERALS TABLET PO SCH (09:43)
[2019-12-05] MEDS: FERROUS SULFATE 325MG TABLET PO SCH ×3 (09:43→16:30)
[2019-12-05] MEDS: ASCORBIC ACID 500 MG TABLET PO SCH (10:57)
[2019-12-05] MEDS: FLUOXETINE HCL 20MG CAPSULE GT SCH (10:58)
[2019-12-05] MEDS: HEPARIN 5000 UNITS/ML VIAL SUBCUT SCH ×2 (10:58→21:24)
[2019-12-05 16:14] VITALS: BP_SYST 108; BP_SYST 86; BP_SYST 99; BP_DIAS 46; BP_DIAS 64; BP_DIAS 67
[2019-12-05 20:00] VITALS: BP 138/63
[2019-12-05 21:15] VITALS: BP_SYST 104; BP_SYST 108; BP_SYST 89; BP_DIAS 51; BP_DIAS 61; BP_DIAS 86
[2019-12-05] MEDS: LEVOCETIRIZINE 5 MG GT SCH (21:24)
[2019-12-05] MEDS: SENNOSIDES/DOCUSATE SOD 8.6/50MG TABLET PO SCH (21:24)
[2019-12-05] MEDS: TRAZODONE HCL 50MG TABLET PO PRN (21:27)
[2019-12-06 05:58] VITALS: BP_SYST 60; BP_SYST 77; BP_SYST 96; BP_DIAS 33; BP_DIAS 44; BP_DIAS 62
[2019-12-06] MEDS: MIDODRINE HCL 5MG TABLET GT SCH ×3 (06:02→21:37)
[2019-12-06 08:00] VITALS: BP 103/69
[2019-12-06] MEDS: POLYETHYLENE GLYCOL 3350 (17GM) 1 DOSE PACK GT SCH (09:00)
[2019-12-06] MEDS: MAGNESIUM HYDROXIDE 400MG/5ML 30ML UDC PO SCH ×2 (09:00→17:18)
[2019-12-06] MEDS: DOCUSATE SODIUM SUGAR FREE 100MG/10ML UDC GT SCH ×2 (09:13→20:21)
[2019-12-06] MEDS: FERROUS SULFATE 325MG TABLET PO SCH ×3 (09:13→17:18)
[2019-12-06] MEDS: MULTIVITAMINS,THER W-MINERALS TABLET PO SCH (09:13)
[2019-12-06] MEDS: ASCORBIC ACID 500 MG TABLET PO SCH (09:13)
[2019-12-06] MEDS: FLUOXETINE HCL 20MG CAPSULE GT SCH (09:13)
[2019-12-06] MEDS: FLUDROCORTISONE ACETATE 0.1MG TABLET PO SCH ×2 (09:13→17:18)
[2019-12-06] MEDS: HEPARIN 5000 UNITS/ML VIAL SUBCUT SCH ×2 (09:13→20:18)
[2019-12-06 10:02] LABS: BASOPHILS % 0.4 % (0.0-2.0); EOSINOPHILS % 1.3 % (0.0-5.0); HEMOGLOBIN. 12.4 g/dL (14.0-18.0); LYMPHOCYTES % 30.3 % (20.0-50.0); MEAN CORPUSCULAR HEMOGLOBIN 30.3 pg (28.0-32.0); MEAN PLATELET VOLUME 9.7 fl (7.4-10.4); MONOCYTES % 7.1 % (2.0-8.0); NEUTROPHILS % 60.9 % (40.0-76.0); PLATELET 335 x1000/uL (130-400); RED CELL DISTRIBUTION WIDTH 13.7 % (11.6-14.6)
[2019-12-06 10:12] LABS: CHLORIDE 109 mEq/L (98-107)
[2019-12-06] MEDS ORDERED: MINERAL OIL ENEMA 133ML PR SCH (15:00)
[2019-12-06] MEDS ORDERED: MAGNESIUM CITRATE 300ML SOLUTION PEG SCH (15:00)
[2019-12-06] MEDS: ACETAMINOPHEN 650MG/20.3ML UDC GT PRN (15:07)
[2019-12-06] MEDS: LACTULOSE 20G/30ML UDC GT SCH ×2 (15:08→17:18)
[2019-12-06 18:47] VITALS: BP_SYST 116; BP_SYST 123; BP_SYST 80; BP_DIAS 45; BP_DIAS 69; BP_DIAS 75
[2019-12-06 20:00] VITALS: BP 118/79
[2019-12-06 20:14] VITALS: BP_SYST 111; BP_SYST 76; BP_SYST 99; BP_DIAS 39; BP_DIAS 65; BP_DIAS 75
[2019-12-06] MEDS: SENNOSIDES/DOCUSATE SOD 8.6/50MG TABLET PO SCH (20:21)
[2019-12-06] MEDS: LEVOCETIRIZINE 5 MG GT SCH (20:21)
[2019-12-06] MEDS: TRAZODONE HCL 50MG TABLET PO PRN (21:36)
[2019-12-07 05:53] VITALS: BP_SYST 74; BP_SYST 91; BP_SYST 95; BP_DIAS 42; BP_DIAS 61; BP_DIAS 63
[2019-12-07] MEDS: MIDODRINE HCL 5MG TABLET GT SCH ×3 (05:59→21:09)
[2019-12-07 08:00] VITALS: BP 118/81
[2019-12-07] MEDS: LACTULOSE 20G/30ML UDC GT SCH (08:25)
[2019-12-07] MEDS: DOCUSATE SODIUM SUGAR FREE 100MG/10ML UDC GT SCH ×2 (08:25→21:00)
[2019-12-07] MEDS: POLYETHYLENE GLYCOL 3350 (17GM) 1 DOSE PACK GT SCH (08:26)
[2019-12-07] MEDS: MAGNESIUM HYDROXIDE 400MG/5ML 30ML UDC PO SCH ×2 (08:28→16:29)
[2019-12-07] MEDS: ASCORBIC ACID 500 MG TABLET PO SCH (10:31)
[2019-12-07] MEDS: FLUOXETINE HCL 20MG CAPSULE GT SCH (10:31)
[2019-12-07] MEDS: FLUDROCORTISONE ACETATE 0.1MG TABLET PO SCH ×2 (10:31→16:29)
[2019-12-07] MEDS: MULTIVITAMINS,THER W-MINERALS TABLET PO SCH (10:31)
[2019-12-07] MEDS: HEPARIN 5000 UNITS/ML VIAL SUBCUT SCH ×2 (10:31→21:08)
[2019-12-07] MEDS: FERROUS SULFATE 325MG TABLET PO SCH ×3 (10:31→16:29)
[2019-12-07 20:00] VITALS: BP 102/72
[2019-12-07] MEDS: SENNOSIDES/DOCUSATE SOD 8.6/50MG TABLET PO SCH (21:00)
[2019-12-07 21:02] VITALS: BP_SYST 107; BP_SYST 88; BP_SYST 97; BP_DIAS 55; BP_DIAS 61; BP_DIAS 68
[2019-12-07] MEDS: LEVOCETIRIZINE 5 MG GT SCH (21:09)
[2019-12-08] MEDS: TRAZODONE HCL 50MG TABLET PO PRN ×2 (01:03→23:04)
[2019-12-08 05:47] VITALS: BP_SYST 109; BP_SYST 81; BP_SYST 91; BP_DIAS 45; BP_DIAS 65; BP_DIAS 74
[2019-12-08] MEDS: MIDODRINE HCL 5MG TABLET GT SCH ×3 (05:49→23:05)
[2019-12-08 08:21] VITALS: BP 116/76
[2019-12-08] MEDS: LACTULOSE 20G/30ML UDC GT SCH (09:00)
[2019-12-08] MEDS: HEPARIN 5000 UNITS/ML VIAL SUBCUT SCH ×2 (09:00→20:24)
[2019-12-08] MEDS: MULTIVITAMINS,THER W-MINERALS TABLET PO SCH (09:50)
[2019-12-08] MEDS: ASCORBIC ACID 500 MG TABLET PO SCH (09:50)
[2019-12-08] MEDS: MAGNESIUM HYDROXIDE 400MG/5ML 30ML UDC PO SCH ×2 (09:50→17:59)
[2019-12-08] MEDS: FERROUS SULFATE 325MG TABLET PO SCH ×3 (09:50→17:52)
[2019-12-08] MEDS: FLUOXETINE HCL 20MG CAPSULE GT SCH (09:51)
[2019-12-08] MEDS: FLUDROCORTISONE ACETATE 0.1MG TABLET PO SCH ×2 (09:51→17:52)
[2019-12-08] MEDS: POLYETHYLENE GLYCOL 3350 (17GM) 1 DOSE PACK GT SCH (09:51)
[2019-12-08] MEDS: DOCUSATE SODIUM SUGAR FREE 100MG/10ML UDC GT SCH ×2 (09:51→20:21)
[2019-12-08] MEDS: BACITRACIN/POLYMYXIN B SULFATE OINT 15GM TOP SCH ×2 (14:00→23:06)
[2019-12-08] MEDS: ACETAMINOPHEN 650MG/20.3ML UDC GT PRN (17:53)
[2019-12-08 20:00] VITALS: BP 119/79
[2019-12-08] MEDS: SENNOSIDES/DOCUSATE SOD 8.6/50MG TABLET PO SCH (20:21)
[2019-12-08] MEDS: LEVOCETIRIZINE 5 MG GT SCH (20:25)
[2019-12-08 22:57] VITALS: BP_SYST 108; BP_SYST 89; BP_SYST 99; BP_DIAS 61; BP_DIAS 72; BP_DIAS 75
[2019-12-09 06:38] VITALS: BP_SYST 100; BP_SYST 106; BP_SYST 70; BP_DIAS 41; BP_DIAS 68; BP_DIAS 76
[2019-12-09] MEDS: MIDODRINE HCL 5MG TABLET GT SCH ×3 (06:44→21:12)
[2019-12-09] MEDS: BACITRACIN/POLYMYXIN B SULFATE OINT 15GM TOP SCH ×3 (06:44→21:53)
[2019-12-09 08:00] VITALS: BP 123/77
[2019-12-09] MEDS: LACTULOSE 20G/30ML UDC GT SCH (09:00)
[2019-12-09] MEDS: POLYETHYLENE GLYCOL 3350 (17GM) 1 DOSE PACK GT SCH (09:00)
[2019-12-09] MEDS: MAGNESIUM HYDROXIDE 400MG/5ML 30ML UDC PO SCH ×2 (09:00→17:00)
[2019-12-09] MEDS: DOCUSATE SODIUM SUGAR FREE 100MG/10ML UDC GT SCH ×2 (09:00→21:00)
[2019-12-09] MEDS: ASCORBIC ACID 500 MG TABLET PO SCH (10:08)
[2019-12-09] MEDS: FERROUS SULFATE 325MG TABLET PO SCH ×3 (10:08→17:00)
[2019-12-09] MEDS: MULTIVITAMINS,THER W-MINERALS TABLET PO SCH (10:08)
[2019-12-09] MEDS: FLUOXETINE HCL 20MG CAPSULE GT SCH (10:08)
[2019-12-09] MEDS: FLUDROCORTISONE ACETATE 0.1MG TABLET PO SCH ×2 (10:08→17:00)
[2019-12-09] MEDS: HEPARIN 5000 UNITS/ML VIAL SUBCUT SCH ×2 (10:12→21:13)
[2019-12-09] MEDS ORDERED: MOM GT (14:51)
[2019-12-09] MEDS ORDERED: LACT10SO7 GT (14:51)
[2019-12-09] MEDS ORDERED: TRAZ-251 PO (14:51)
[2019-12-09] MEDS ORDERED: DOCU50LI14 GT (14:51)
[2019-12-09] MEDS ORDERED: MIDO5TAB4 GT (15:16)
[2019-12-09] MEDS ORDERED: BO1 TP (15:16)
[2019-12-09] MEDS ORDERED: FLOR PO (15:16)
[2019-12-09 20:00] VITALS: BP 111/79
[2019-12-09] MEDS: SENNOSIDES/DOCUSATE SOD 8.6/50MG TABLET PO SCH (21:00)
[2019-12-09] MEDS: LEVOCETIRIZINE 5 MG GT SCH (21:13)
[2019-12-10] MEDS: MIDODRINE HCL 5MG TABLET GT SCH ×2 (05:53→12:36)
[2019-12-10] MEDS: BACITRACIN/POLYMYXIN B SULFATE OINT 15GM TOP SCH ×2 (05:53→12:35)
[2019-12-10 08:00] VITALS: BP 134/88
[2019-12-10] MEDS: FLUOXETINE HCL 20MG CAPSULE GT SCH (08:54)
[2019-12-10] MEDS: MULTIVITAMINS,THER W-MINERALS TABLET PO SCH (08:54)
[2019-12-10] MEDS: FLUDROCORTISONE ACETATE 0.1MG TABLET PO SCH ×2 (08:54→16:35)
[2019-12-10] MEDS: FERROUS SULFATE 325MG TABLET PO SCH ×3 (08:54→16:35)
[2019-12-10] MEDS: ASCORBIC ACID 500 MG TABLET PO SCH (08:55)
[2019-12-10] MEDS: DOCUSATE SODIUM SUGAR FREE 100MG/10ML UDC GT SCH (08:55)
[2019-12-10] MEDS: HEPARIN 5000 UNITS/ML VIAL SUBCUT SCH (08:57)
[2019-12-10] MEDS: LACTULOSE 20G/30ML UDC GT SCH (08:57)
[2019-12-10] MEDS: POLYETHYLENE GLYCOL 3350 (17GM) 1 DOSE PACK GT SCH (08:58)
[2019-12-10] MEDS: MAGNESIUM HYDROXIDE 400MG/5ML 30ML UDC PO SCH (08:58)
[2019-12-10 14:51] VITALS: BP 134/88
== END 2019-12-10 16:42 | disposition home health service (06) | DRG 41 ==
PROVIDERS: ADMIT Physical Medicine & Rehabilitation Spinal Cord Injury Medicine; ATTEND Family Medicine Adult Medicine
PROC: 4A00X4Z Measurement of Central Nervous Electrical Activity, External Approach (ICD-10-PCS; principal; 2019-12-09)
DX: C71.7 Malignant neoplasm of brain stem (principal); J69.0 Pneumonitis due to inhalation of food and vomit; E43 Unspecified severe protein-calorie malnutrition; E87.8 Other disorders of electrolyte and fluid balance, not elsewhere classified; G91.0 Communicating hydrocephalus; R13.10 Dysphagia, unspecified; Z93.1 Gastrostomy status; R53.81 Other malaise; R47.02 Dysphasia; G31.84 Mild cognitive impairment of uncertain or unknown etiology; R47.1 Dysarthria and anarthria; R49.0 Dysphonia; J44.9 Chronic obstructive pulmonary disease, unspecified; E16.2 Hypoglycemia, unspecified; F41.8 Other specified anxiety disorders; G52.3 Disorders of hypoglossal nerve; G58.9 Mononeuropathy, unspecified; K21.9 Gastro-esophageal reflux disease without esophagitis; K59.00 Constipation, unspecified; K14.8 Other diseases of tongue; D72.829 Elevated white blood cell count, unspecified; I95.1 Orthostatic hypotension; R26.89 Other abnormalities of gait and mobility; R42 Dizziness and giddiness; D50.9 Iron deficiency anemia, unspecified; R73.9 Hyperglycemia, unspecified; Z79.52 Long term (current) use of systemic steroids; Z79.899 Other long term (current) drug therapy; Z80.0 Family history of malignant neoplasm of digestive organs; Z98.2 Presence of cerebrospinal fluid drainage device; Z85.841 Personal history of malignant neoplasm of brain; Z88.8 Allergy status to other drugs, medicaments and biological substances
CPT/HCPCS: 36415; 71045; 80048; 80053; 82024; 82306; 82533; 82607; 82728; 82746; 82962; 83001; 83002; 83036; 83540; 83550; 83735; 84100; 84134; 84146; 84402; 84403; 84439; 84443; 84481; 85025; 92523; 92610; 93970; 97110; 97112; 97116; 97162; 97166; 97530; 97535; J1644